=== PATIENT | female | born 1980 | race Caucasian/White ===

== ENCOUNTER 2018-12-06 22:34 | Emergency (ER) | payer SELFPAY ==
[2018-12-06 23:44] LABS: ABSOLUTE BASOPHILS # (AUTO) 0.1 10^3/uL (0.0-0.2); ABSOLUTE EOSINOPHILS # (AUTO) 0.2 10^3/uL (0.0-0.6); ABSOLUTE LYMPHOCYTES (AUTO) 2.9 10^3/uL (0.5-4.7); ABSOLUTE MONOCYTES (AUTO) 0.6 10^3/uL (0.1-1.4); ABSOLUTE NEUT (AUTO) 5.7 10^3/uL (1.7-8.2); BASOPHILS % (AUTO) 0.6 % (0-2); HEMATOCRIT 41.3 % (36.0-47.0); LYMPHOCYTES % (AUTO) 30.6 % (13-45); MEAN CORPUSCULAR HEMOGLOBIN 30.1 pg (27.0-33.4); MEAN CORPUSCULAR HGB CONC 33.8 g/dL (32.0-36.0); MEAN CORPUSCULAR VOLUME 89 fl (80-97); MONOCYTES % (AUTO) 6.2 % (3-13); PLATELET COUNT 307 10^3/uL (150-450); RED BLOOD COUNT 4.65 10^6/uL (3.72-5.28); RED CELL DISTRIBUTION WIDTH 13.1 % (11.5-14.0); SEGMENTED NEUTROPHILS % (AUTO) 60.6 % (42-78); TOTAL CELLS COUNTED % (AUTO) 100 %; WHITE BLOOD COUNT 9.4 10^3/uL (4.0-10.5)
[2018-12-06 23:58] LABS: APPEARANCE,URINE CLEAR; BILIRUBIN,URINE NEGATIVE (NEGATIVE); COLOR,URINE STRAW; GLUCOSE, URINE >=500 mg/dL (NEGATIVE); KETONES,URINE NEGATIVE (NEGATIVE); LEUKOCYTE ESTERASE,URINE NEGATIVE (NEGATIVE); NITRITE,URINE NEGATIVE (NEGATIVE); PROTEIN,URINE NEGATIVE (NEGATIVE); URINE SPECIFIC GRAVITY 1.008; UROBILINOGEN,URINE NEGATIVE mg/dL (<2.0)
[2018-12-07 00:11] LABS: ALANINE AMINOTRANSFERASE 39 U/L (9-52); ALBUMIN 4.1 g/dL (3.5-5.0); ALKALINE PHOSPHATASE 97 U/L (38-126); ANION GAP 9 (5-19); ASPARTATE AMINO TRANSFERASE 21 U/L (14-36); BILIRUBIN,DIRECT 0.2 mg/dL (0.0-0.4); BILIRUBIN,TOTAL 0.2 mg/dL (0.2-1.3); BLOOD UREA NITROGEN 11 mg/dL (7-20); CALCIUM 10.2 mg/dL (8.4-10.2); CARBON DIOXIDE 27 mmol/L (22-30); CHLORIDE 101 mmol/L (98-107); GLUCOSE 234 mg/dL (75-110); LIPASE 100.5 U/L (23-300); POTASSIUM 4.4 mmol/L (3.6-5.0); SODIUM 136.9 mmol/L (137-145); TOTAL PROTEIN 7.2 g/dL (6.3-8.2)
[2018-12-07] MEDS ORDERED: MORPHINE SULFATE 10 MG/ML INJ IV PRN (01:08)
[2018-12-07] MEDS ORDERED: KETOROLAC TROMETHAMINE INJ/PF 30 MG/1 ML SDV IV ONE (01:08)
[2018-12-07] MEDS ORDERED: ONDANSETRON HCL INJ/PF 4 MG/2 ML SDV IV ONE (01:08)
[2018-12-07] MEDS ORDERED: NORMAL SALINE 1000 ML 1,000 ML IV ONE (01:11)
--- NOTE | 2018-12-07 01:11 | ER Document Report ---
ED General - General Chief Complaint: Abdominal Pain Stated Complaint: RIGHT LOWER QUADRANT PAIN Time Seen by Provider: 12/06/18 23:12 Notes: M was a severe, throbbing, constant pain into her right low back radiating into her right suprapubic region. States that the pain was severe when present. The pain did resolve spontaneously approximately 4 hours after it started and was gone for roughly 2 hours before it recurred. Nothing seems to improve or worsen the pain nor trigger it. She denies any history of similar symptoms in the past. She states that she has had associated nausea but no vomiting. Has not seen her primary care physician regarding today's concerns. Denies fever or constitutional symptoms. LMP was November 25. No vaginal bleeding or discharge. No dysuria. TRAVEL OUTSIDE OF THE [place] IN LAST 30 DAYS: No - Related Data Allergies/Adverse Reactions: amoxicillin Allergy (Verified 12/06/18 23:29) Past Medical History - General Information source: Patient - Social History Smoking Status: Current Every Day Smoker Frequency of alcohol use: None Drug Abuse: None Lives with: Spouse/Significant other Family History: Reviewed & Not Pertinent Patient has suicidal ideation: No Patient has homicidal ideation: No Renal/ Medical History: Denies: Hx Peritoneal Dialysis Past Surgical History: Reports: Hx Section Review of Systems - Review of Systems Notes: Constitutional: Negative for fever. HENT: Negative for sore throat. Eyes: Negative for visual changes. Cardiovascular: Negative for chest pain. Respiratory: Negative for shortness of breath. Gastrointestinal: Positive for flank pain and abdominal pain. Positive for nausea. Genitourinary: Negative for dysuria. Musculoskeletal: Negative for back pain. Skin: Negative for rash. Neurological: Negative for headaches, weakness or numbness. 10 point ROS negative except as marked above and in HPI. Physical Exam - Vital signs Vitals: Temp Pulse Resp BP Pulse Ox 98.0 F 87 15 143/93 H 98 12/06/18 23:03 12/06/18 23:03 12/06/18 23:03 12/06/18 23:03 12/06/18 23:03 Interpretation: Hypertensive Notes: PHYSICAL EXAMINATION: GENERAL: Appears uncomfortable but in no overt distress HEAD: Atraumatic, normocephalic. EYES: Pupils equal round and reactive to light, extraocular movements intact, sclera anicteric, conjunctiva are normal. ENT: nares patent, oropharynx clear without exudates. Mildly dry mucous membranes. NECK: Normal range of motion, supple without lymphadenopathy LUNGS: Breath sounds clear to auscultation bilaterally and equal. No wheezes rales or rhonchi. HEART: Regular rate and rhythm without murmurs ABDOMEN: Soft, no focal abdominal tenderness on palpation, right CVA tenderness present, normoactive bowel sounds. No guarding, no rebound. No masses appreciated. EXTREMITIES: Normal range of motion, no pitting or edema. No cyanosis. NEUROLOGICAL: No focal neurological deficits. Moves all extremities spontaneously and on command. PSYCH: Normal mood, normal affect. SKIN: Warm, Dry, normal turgor, no rashes or lesions noted. Course - Re-evaluation Re-evalutation: 12/07/18 01:11 Patient presents with right adnexal pain as well as right low back pain considerations include ovarian cyst, nephrolithiasis, much less likely appendicitis given clinical history. Labs unremarkable. Given ambiguity CT was obtained and does demonstrate a 3 cm cyst on the right ovary. Patient's pain controlled with Toradol. Patient was having moderate pain at the time of my assessment and I do not clinically suspect an ovarian torsion particular given that the patient's pain has been on and off and was never unbearable at any time. This is also not extremely large and would not place the patient at very high risk for torsion. I did review signs and symptoms of a indicated torsion with the patient and her significant other at the bedside at length. At this time will discharge with return precautions and follow-up recommendations. Verbal discharge instructions given a the bedside and opportunity for questions given. Medication warnings reviewed. Patient is in agreement with this plan and has verbalized understanding of return precautions and the need for primary care follow-up in the next 24-72 hours. - Vital Signs Vital signs: Temp Pulse Resp BP Pulse Ox 97.5 F 82 14 129/88 H 100 12/07/18 02:06 12/07/18 02:06 12/07/18 02:06 12/07/18 02:06 12/07/18 02:06 - Laboratory Result Diagrams: 12/06/18 23:25 12/06/18 23:25 Laboratory results interpreted by me: 12/06/18 12/06/18 23:25 23:25 Sodium 136.9 L Glucose 234 H Urine Glucose (UA) >=500 H Urine Blood MODERATE H - Diagnostic Test Radiology reviewed: Reports reviewed Discharge - Discharge Clinical Impression: Right ovarian cyst, Right lower quadrant abdominal pain Right low back pain Qualifiers: Chronicity: acute Sciatica presence: without sciatica Qualified Code(s): M54.5 - Low back pain Condition: Good Disposition: HOME, SELF-CARE Additional Instructions: Your pain today is likely related to an ovarian cyst on the right side. For your pain: Take ibuprofen 600 mg and acetaminophen 1000 mg every 6 hours together as needed for pain. Your pain can last for up to 3 or 4 days and then should resolve. You should return to the emergency department immediately if you have an abrupt worsening of your pain, persistent vomiting, fever greater than 100.4 F, pass out, or have any other symptoms that are worrisome to you.
--- NOTE | 2018-12-07 01:54 | RADIOLOGY REPORT (SQ) ---
EXAM DESCRIPTION: CT ABDOMEN PELVIS WITHOUT IV CONTRAST COMPLETED DATE/TME: 12/07/2018 01:08 CLINICAL HISTORY: 38 years, Female, right flank pain, ?first kidney stone Comparison: None TECHNIQUE: Contiguous axial CT images of the abdomen and pelvis were obtained. Sagittal and coronal reformats were reviewed. This exam was performed according to our departmental dose-optimization program, which includes automated exposure control, adjustment of the mA and/or kV according to patient size and/or use of iterative reconstruction technique. FINDINGS: Lung bases: Clear. Liver:Unremarkable. No focal liver lesion. Gallbladder:Unremarkable. No gallstones. No gallbladder wall thickening or pericholecystic fluid. Spleen:Unremarkable Pancreas: Pancreas is unremarkable. Adrenal glands:Within normal limits. Kidneys/ureters:Within normal limits Stomach/small bowel/colon: Stomach is unremarkable. Small bowel is unremarkable. Colon is unremarkable. Appendix: No evidence of appendicitis. Peritoneum: No free fluid. Vascular structures: within normal limits Lymph nodes: No abnormal lymph nodes. Bladder:Unremarkable. Pelvic organs: 3 cm right ovarian cyst with fluid fluid level Bones: No acute osseous abnormality. Soft tissues: Unremarkable.. IMPRESSION: 3 cm right probably benign ovarian cyst. No follow-up imaging is recommended. Reference: J Am Layton Radiol 2013;10:[id number] Negative for hydronephrosis or nephrolithiasis.
[2018-12-07 02:06] VITALS: BP 129/88
== END 2018-12-07 02:44 | disposition home or self-care (01) ==
LOC: ER 22:34
DX: N83.201 Unspecified ovarian cyst, right side (principal); R10.31 Right lower quadrant pain; M54.5 Low back pain; F17.200 Nicotine dependence, unspecified, uncomplicated; Z88.0 Allergy status to penicillin
CPT/HCPCS: 99284; 96374; 96375; 36415; 83690; 85025; 81025; 80053; 81001; 74176; J1885; J2405; J7030

== ENCOUNTER 2019-12-21 15:25 | Emergency (ER) | payer SELFPAY ==
--- NOTE | 2019-12-21 15:56 | ER Document Report ---
ED Medical Screen (RME) - General Chief Complaint: Dizziness Stated Complaint: HEADACHE,SHAKY Time Seen by Provider: 12/21/19 15:48 Mode of Arrival: Ambulatory Information source: Patient Notes: 39-year-old female patient presenting to the emergency department with complaints of headache and shakiness. Patient reports she started a new blood pressure medication a few days ago. She takes metoprolol 25 mg twice daily. She states that the medication makes her feel very strange. She reports she decided not to take the dose this morning because she does not like the way it makes her feel. She states that she was driving home and felt very tired and then started shaking. She denies any loss of consciousness, states she remembers the entire event. She states it felt similar to what she would describe as a seizure however she has no seizure history. She does report a headache to the frontal area, states headache has been there for several days, she does have a history of previous headaches, states she usually takes Tylenol for this. I have greeted and performed a rapid initial assessment of this patient. A comprehensive ED assessment and evaluation of the patient, analysis of test results and completion of the medical decision making process will be conducted by additional ED providers. I have specifically instructed the patient or family members with the patient to immediately return to any nursing staff should anything change in the patient's condition or with their chief complaint. TRAVEL OUTSIDE OF THE [place] IN LAST 30 DAYS: No - Related Data Allergies/Adverse Reactions: amoxicillin Allergy (Verified 12/06/18 23:29) Home Medications: Paxil. Metoprolol Past Medical History - Social History Chew tobacco use (# tins/day): No Frequency of alcohol use: None Drug Abuse: None Renal/ Medical History: Denies: Hx Peritoneal Dialysis Past Surgical History: Reports: Hx Section Physical Exam - Vital signs Vitals: Temp Pulse Resp BP Pulse Ox 98.5 F 98 18 140/94 H 97 12/21/19 15:42 12/21/19 15:42 12/21/19 15:42 12/21/19 15:42 12/21/19 15:42 Course - Vital Signs Vital signs: Temp Pulse Resp BP Pulse Ox 98.5 F 98 18 140/94 H 97 12/21/19 15:49 12/21/19 15:42 12/21/19 15:42 12/21/19 15:42 12/21/19 15:42
[2019-12-21 16:28] LABS: ABSOLUTE EOSINOPHILS # (AUTO) 0.2 10^3/uL (0.0-0.6); ABSOLUTE LYMPHOCYTES (AUTO) 1.8 10^3/uL (0.5-4.7); ABSOLUTE MONOCYTES (AUTO) 0.4 10^3/uL (0.1-1.4); ABSOLUTE NEUT (AUTO) 6.7 10^3/uL (1.7-8.2); BASOPHILS % (AUTO) 0.4 % (0-2); EOSINOPHILS % (AUTO) 1.8 % (0-6); HEMATOCRIT 41.5 % (36.0-47.0); HEMOGLOBIN 14.5 g/dL (12.0-15.5); LYMPHOCYTES % (AUTO) 20.1 % (13-45); MEAN CORPUSCULAR HEMOGLOBIN 31.5 pg (27.0-33.4); MEAN CORPUSCULAR VOLUME 90 fl (80-97); MONOCYTES % (AUTO) 4.5 % (3-13); PLATELET COUNT 306 10^3/uL (150-450); RED BLOOD COUNT 4.61 10^6/uL (3.72-5.28); RED CELL DISTRIBUTION WIDTH 13.7 % (11.5-14.0); SEGMENTED NEUTROPHILS % (AUTO) 73.2 % (42-78); TOTAL CELLS COUNTED % (AUTO) 100 %; WHITE BLOOD COUNT 9.1 10^3/uL (4.0-10.5)
[2019-12-21 16:44] LABS: APPEARANCE,URINE CLEAR; BILIRUBIN,URINE NEGATIVE (NEGATIVE); COLOR,URINE YELLOW; GLUCOSE, URINE NEGATIVE (NEGATIVE); KETONES,URINE NEGATIVE (NEGATIVE); LEUKOCYTE ESTERASE,URINE TRACE (NEGATIVE); NITRITE,URINE NEGATIVE (NEGATIVE); PROTEIN,URINE NEGATIVE (NEGATIVE); URINE SPECIFIC GRAVITY 1.015; UROBILINOGEN,URINE NEGATIVE mg/dL (<2.0)
[2019-12-21 16:46] LABS: ALBUMIN 4.4 g/dL (3.5-5.0); ALKALINE PHOSPHATASE 63 U/L (38-126); ANION GAP 8 (5-19); ASPARTATE AMINO TRANSFERASE 31 U/L (14-36); BILIRUBIN,TOTAL 0.2 mg/dL (0.2-1.3); BLOOD UREA NITROGEN 12 mg/dL (7-20); CARBON DIOXIDE 24 mmol/L (22-30); CHLORIDE 104 mmol/L (98-107); GLUCOSE 99 mg/dL (75-110); POTASSIUM 4.8 mmol/L (3.6-5.0); TOTAL PROTEIN 7.5 g/dL (6.3-8.2)
[2019-12-21 17:03] LABS: PHOSPHORUS 3.9 mg/dL (2.5-4.5)
--- NOTE | 2019-12-21 17:12 | RADIOLOGY REPORT (SQ) ---
EXAM DESCRIPTION: CT HEAD WITHOUT IMAGES COMPLETED DATE/TIME: 12/21/2019 4:00 pm REASON FOR STUDY: left side chronic corona COMPARISON: None. TECHNIQUE: Axial images acquired through the brain without intravenous contrast. Images reviewed wi th bone, brain and subdural windows. Additional sagittal and coronal reconstructions were generated. Images stored on PACS. All CT scanners at this facility use dose modulation, iterative reconstruction, and/or weight based d osing when appropriate to reduce radiation dose to as low as reasonably achievable (ALARA). [facility]: Dose Right [facility]: CareDose [facility]: Dose Right [facility]: Teradose 4D [facility]: [employer] RADIATION DOSE: CT Rad equipment meets quality standard of care and radiation dose reduction techniq ues were employed. CTDIvol: 53.2 mGy. DLP: 911 mGy-cm. mGy. LIMITATIONS: None. FINDINGS: VENTRICLES: Normal size and contour. CEREBRUM: No masses. No hemorrhage. No midline shift. No evidence for acute infarction. Normal gra y/white matter differentiation. No areas of low density in the white matter. CEREBELLUM: No masses. No hemorrhage. No alteration of density. No evidence for acute infarction. EXTRAAXIAL SPACES: No fluid collections. No masses. ORBITS AND GLOBE: No intra- or extraconal masses. Normal contour of globe without masses. CALVARIUM: No fracture. PARANASAL SINUSES: No fluid or mucosal thickening. SOFT TISSUES: No mass or hematoma. OTHER: No other significant finding. IMPRESSION: No acute intracranial hemorrhage, mass, or evidence of acute territorial infarct. EVIDENCE OF ACUTE STROKE: NO. COMMENT: Quality ID # [id number]: Final reports with documentation of one or more dose reduction techniques (e.g., Automated exposure control, adjustment of the mA and/or kV according to patient size, use of iterative reconstruction technique) TECHNICAL DOCUMENTATION: JOB ID: [id number] 2010 [employer]- All Rights Reserved Reading location - IP/workstation name: [email or web address]
[2019-12-21] MEDS ORDERED: ONDANSETRON HCL INJ/PF 4 MG/2 ML SDV IV ONE (17:16)
[2019-12-21] MEDS: NORMAL SALINE 1000 ML 1,000 ML IV PRN ×2 (17:20→17:22)
[2019-12-21 18:41] VITALS: BP 127/95
--- NOTE | 2019-12-21 18:50 | ER Document Report ---
ED General - General Chief Complaint: Dizziness Stated Complaint: HEADACHE,SHAKY Time Seen by Provider: 12/21/19 15:48 Mode of Arrival: Ambulatory TRAVEL OUTSIDE OF THE [place] IN LAST 30 DAYS: No - HPI Notes: 39-year-old female history of hypertension diabetes presents with episode of whole body tremulousness and feeling lightheaded 'like she was going to pass out' shortly prior to arrival. Patient says that she started taking metoprolol for hypertension recently and that she has been feeling "funny "since she started taking it. Patient also complains of a new headache that has been constant for the last 4 days and her left temporal area. Patient has history of migraines but says that this headache is different than her usual migraine because of location. Headache came on very gradually worse after 2 days of onset and is similar in severity to other headaches patient has had in her lifetime. Patient voices feeling nauseous for the past few days. Patient denies any vomiting, change in vision/speech/gait, trauma, confusion, fever, neck pain/stiffness, cardiac history, chest pain, shortness of breath, diarrhea/melena/bright red blood per rectum, urinary symptoms, vaginal symptoms - Related Data Allergies/Adverse Reactions: amoxicillin Allergy (Verified 12/06/18 23:29) Home Medications: Paxil. Metoprolol Past Medical History - General Information source: Patient - Social History Smoking Status: Current Every Day Smoker Chew tobacco use (# tins/day): No Frequency of alcohol use: None Drug Abuse: None Family History: Reviewed & Not Pertinent Patient has homicidal ideation: No Endocrine Medical History: Reports: Hx Diabetes Mellitus Type 2 Renal/ Medical History: Denies: Hx Peritoneal Dialysis Past Surgical History: Reports: Hx Section Review of Systems - Review of Systems Notes: REVIEW OF SYSTEMS: CONSTITUTIONAL : Denies fever, chills, or sweats. EENT: Denies recent cold/sinus symptoms, denies throat pain CARDIOVASCULAR: Denies chest pain, ROXANNE RESPIRATORY: Denies cough, denies shortness of breath. GASTROINTESTINAL: Denies abdominal pain, nausea/vomiting. GENITOURINARY: Denies difficulty urinating, painful urination. FEMALE GENITOURINARY: Denies abnormal vaginal bleeding, vaginal discharge. MUSCULOSKELETAL: Denies neck pain, back pain. SKIN: Denies rash or skin lesions. HEMATOLOGIC : Denies easy bruising or bleeding. LYMPHATIC: Denies swollen, enlarged glands. NEUROLOGICAL: Denies headache, denies change in gait. PSYCHIATRIC: Denies anxiety or stress or depression. Physical Exam - Vital signs Vitals: Temp Pulse Resp BP Pulse Ox 98.5 F 98 18 140/94 H 97 12/21/19 15:42 12/21/19 15:42 12/21/19 15:42 12/21/19 15:42 12/21/19 15:42 - Notes Notes: PHYSICAL EXAMINATION: GENERAL: Well-appearing, well-nourished and in no acute distress. HEAD: Atraumatic, normocephalic. EYES: Pupils equal round and appropriate constriction, sclera anicteric, conjunctiva are normal. ENT: nares patent, dry mucous membranes. NECK: Normal range of motion, supple without lymphadenopathy LUNGS: Breath sounds clear to auscultation bilaterally and equal. No wheezes rales or rhonchi. HEART: Regular rate and rhythm without murmurs ABDOMEN: Soft, nontender, no guarding, no masses, no CVAT EXTREMITIES: Normal range of motion, no pitting or edema. No cyanosis. NEUROLOGICAL: Awake, alert, conversing appropriately, moves all extremities spontaneously, steady narrow-base gait, cranial nerves II through XII intact bilaterally, normal [id number], strength and sensation normal in all extremities PSYCH: Normal mood, normal affect. SKIN: Warm, Dry, normal turgor, no rashes or lesions noted. Course - Re-evaluation Re-evalutation: 12/21/19 19:54 Symptoms suggestive of a near syncopal event, not consistent with seizure, likely secondary to mild dehydration from diabetes combined with recent beta- rhiannon addition to medications. Patient in ED felt lightheaded when she went from sitting to standing initially which resolved after fluids and patient able to walk to bathroom without any symptoms. Obtain CT head to rule out mass given new focal headache which was negative. No neuro deficits and no sudden onset headache or worst headache of life, presentation not consistent with subarachnoid/intracranial hemorrhage, IIA H, dural sinus thrombosis, or men ingitis. Given to cardiac risk factors obtain troponin EKG and able to rule patient out with adapt score. Patient felt greatly improved after fluids, discussed holding medication if patient plans on driving before discussing with PCP as to possible dose or medication changes. Gave patient extensive return to ED precautions which she demonstrated understanding of. Gave patient printout of all results and instructed to follow-up with PCP including incidental microscopic hematuria. - Vital Signs Vital signs: Temp Pulse Resp BP Pulse Ox 98.5 F 84 14 127/95 H 100 12/21/19 15:49 12/21/19 15:53 12/21/19 18:01 12/21/19 18:00 12/21/19 18:01 - Laboratory Result Diagrams: 12/21/19 16:10 12/21/19 16:10 Laboratory results interpreted by me: 12/21/19 12/21/19 16:10 16:10 Sodium 135.8 L Urine Blood MODERATE H Ur Leukocyte Esterase TRACE H - EKG Interpretation by Me Additional EKG results interpreted by me: 12/21/19 18:45 Heart rate 68, sinus arrhythmia, no significant ST elevations or depressions, no significant T wave abnormalities, normal intervals, QTC 413 Discharge - Discharge Clinical Impression: Near syncope Condition: Good Disposition: HOME, SELF-CARE Additional Instructions: Near Syncopal Episode Syncope or near syncope (fainting or near-fainting) can occur from many different health problems. Or it can be a simple fainting spell requiring no treatment. It is safe for you to go home, but further evaluation will likely be necessary. Your work-up may include tests for internal bleeding, heart disease, medication problems, or near-strokes. Tests are not always required, however, depending on the nature of your problem. The warning signs of an impending faint include: dizziness, lightheadedness, nausea, hot flashes, tingling, and weakness. If this happens, lay down and put your feet up, then wait until all of these symptoms have passed before standing up again. If these episodes become recurrent, or if you develop chest pain, heart palpitations, mental confusion, blurred vision, or headache, then you should call the physician, or go to the emergency room. Dehydration Dehydration can result from vomiting or diarrhea, fever, or decreased intake of fluids. If severe, hospitalization and intravenous fluids may be required. Most cases are treated at home with fluids by mouth. For the next 24 hours, drink lots of clear fluids. In mild cases, this can be soda pop or sports drinks. For more severe dehydration, the doctor may recommend special fluids such as Pedialyte or Lytren. Try to get three liters (3 quarts) of fluid per day. If vomiting occurs, continue to drink the fluids frequently (every 15 to 20 minutes), but in small amounts (one or two ounces). Depending on the type of dehydration, the doctor may prescribe antinausea medicine or potassium replacements. Call the doctor or return for re-examination if you become progressively weak, vomit repeatedly, or have other new symptoms. Follow-up with your doctor on Sunday morning regarding these events and possible changes to your medication. Increase your fluid intake. If you have any worsening symptoms return to the ED immediately. You are found to have a small amount of blood in your urine which is not likely to be related to your symptoms today. Your sodium was slightly low, also increase your intake of salty foods for the next few days. If you are not having your menstrual period currently makes sure to discuss this with your primary doctor.
--- NOTE | 2019-12-21 21:13 | EKG REPORT ---
SEVERITY:- OTHERWISE NORMAL ECG - SINUS ARRHYTHMIA, RATE 54-75 [place] ABNORMALITY : Confirmed by: Manny Hilliard MD 21-Dec-2019 21:13:28
== END 2019-12-21 18:58 | disposition home or self-care (01) ==
LOC: ER 15:25
DX: R42 Dizziness and giddiness (principal); R25.1 Tremor, unspecified; I10 Essential (primary) hypertension; E11.9 Type 2 diabetes mellitus without complications; Z79.899 Other long term (current) drug therapy; Z88.1 Allergy status to other antibiotic agents; F17.200 Nicotine dependence, unspecified, uncomplicated
CPT/HCPCS: 93005; 99284; 96361; 96374; 36415; 82962; 83735; 84100; 84443; 84703; 85025; 80053; 81001; 84484; 70450; 93010; J2405; J7030